=== PATIENT | male | born 1945 | race Two or more races ===

== ENCOUNTER → 2018-10-26 | Outpatient (CLI) | payer OTHER ==
[~2018-10-26] MED LIST: COZAAR50 MG; GILTUSS TR TAB1 EACH PO; NEURONTIN300 MG; TRICOR48 MG; ULTRACET; ZITHROMAX TRI-500 MG PO; ZOCOR20 MG; ZYRTEC10 M3 PO
== END | disposition home or self-care (01) ==
LOC: SONOGRAMA 10:44
DX: E03.8 Other specified hypothyroidism (principal); E55.9 Vitamin D deficiency, unspecified; E66.8 Other obesity; I11.9 Hypertensive heart disease without heart failure; K11.20 Sialoadenitis, unspecified; E04.2 Nontoxic multinodular goiter

== ENCOUNTER 2018-11-01 09:28 | Outpatient (CLI) | payer OTHER ==
[~2018-11-01] VITALS: Ht 175.3 cm; Wt 83.0 kg
== END 2018-11-01 09:45 | disposition home or self-care (01) ==
LOC: OFIC 805 09:28
DX: H92.02 Otalgia, left ear (principal); D11.0 Benign neoplasm of parotid gland

== ENCOUNTER 2018-11-01 11:33 | Outpatient (CLI) | payer OTHER | END 2018-11-01 11:43 | disposition home or self-care (01) | LOC: LAB 11:33 | DX: K11.8 Other diseases of salivary glands (principal); D11.9 Benign neoplasm of major salivary gland, unspecified ==

== ENCOUNTER 2018-11-03 11:12 | Outpatient (CLI) | payer OTHER | END 2018-11-03 11:42 | disposition home or self-care (01) | LOC: MRI 11:12 | DX: K11.9 Disease of salivary gland, unspecified (principal) | CPT/HCPCS: 70540 ==

== ENCOUNTER 2018-11-29 09:20 | Outpatient (CLI) | payer OTHER ==
[~2018-11-29] VITALS: Ht 152.4 cm; Wt 86.2 kg
== END 2018-11-29 09:40 | disposition home or self-care (01) ==
LOC: OFIC 805 09:20
DX: H93.8X3 Other specified disorders of ear, bilateral (principal)

== ENCOUNTER 2018-12-14 07:36 | Outpatient (CLI) | payer OTHER | END 2018-12-14 07:40 | disposition home or self-care (01) | LOC: SONOGRAMA 07:36 | DX: C07 Malignant neoplasm of parotid gland (principal) ==

== ENCOUNTER 2023-01-22 09:10 | Emergency (ER) | payer OTHER ==
[~2023-01-22] VITALS: Ht 177.8 cm; Wt 81.6 kg
[2023-01-22 12:01] LABS: HEMATOCRIT 41.8 % (39.0-48.0); MEAN CELL VOLUME 89.5 fL (80.0-100.00); MEAN CORPUSCULAR HEMOGLOBIN 30.1 pg (27.00-32.0); MEAN CORPUSCULAR HGB CONC 33.6 g/dl (32.0-36.0); PLATELET COUNT 154 K/uL (150-450); RED BLOOD COUNT 4.67 M/uL (4.00-6.00); RED CELL DISTRIBUTION WIDTH 13.9 % (11.5-14.5)
[2023-01-22 12:24] LABS: CALCIUM 9.3 mg/dL (8.5-10.1); CREATININE SERUM 1.28 mg/dL (0.70-1.30); GFR 54.35; POTASSIUM 3.88 mEq/L (3.5-5.1)
[2023-01-22 12:28] LABS: ABG PH 7.394 (7.35-7.45); ABG PO2 92.9 mmHg (80-100); ABG pCO2 38.2 mmHg (35-45); BASE EXCESS -1.7 mmol/l; BICARBONATE 22.8 mmol/l (23-25); SaO2 97.1 %
== END 2023-01-22 13:16 | disposition home or self-care (01) ==
LOC: ER 09:10
PROVIDERS: General Practice
DX: K11.8 Other diseases of salivary glands (principal); R22.0 Localized swelling, mass and lump, head; I10 Essential (primary) hypertension
CPT/HCPCS: 36415; 82803; 96372; 99282; J1885

== ENCOUNTER 2023-06-08 09:29 | Emergency (ER) | payer OTHER ==
[~2023-06-08] VITALS: Ht 172.7 cm; Wt 83.9 kg
[2023-06-08 10:58] LABS: HEMATOCRIT 44.1 % (39.0-48.0); HEMOGLOBIN 14.8 g/dL (13-16.00); MEAN CELL VOLUME 90.1 fL (80.0-100.00); MEAN CORPUSCULAR HEMOGLOBIN 30.2 pg (27.00-32.0); MEAN CORPUSCULAR HGB CONC 33.6 g/dl (32.0-36.0); PLATELET COUNT 184 K/uL (150-450)
== END 2023-06-08 13:49 | disposition home or self-care (01) ==
LOC: ER 09:31
PROVIDERS: General Practice
DX: R05.8 Other specified cough (principal); I10 Essential (primary) hypertension